=== PATIENT | male | born 1975 | race Caucasian/White ===

== ENCOUNTER 2017-08-04 03:28 | Emergency (ER) | payer MEDICAID ==
[~2017-08-04] VITALS: Ht 170.2 cm; Wt 86.0 kg
[2017-08-04 03:46] VITALS: Ht 170.2 cm; Wt 86.0 kg
[2017-08-04 06:06] VITALS: BP 118/68
== END 2017-08-04 06:06 | disposition home or self-care (01) ==
LOC: ED 03:28
DX: J45.901 Unspecified asthma with (acute) exacerbation (principal); J06.9 Acute upper respiratory infection, unspecified
CPT/HCPCS: J7512; J7613

== ENCOUNTER 2019-07-27 04:58 | Emergency (ER) | payer SELFPAY ==
[~2019-07-27] VITALS: Ht 162.6 cm; Wt 84.4 kg
[2019-07-27 05:05] VITALS: Ht 162.6 cm; Wt 84.4 kg
[2019-07-27 06:08] VITALS: BP 127/81
== END 2019-07-27 06:08 | disposition home or self-care (01) ==
LOC: ED 04:58
DX: K52.9 Noninfective gastroenteritis and colitis, unspecified (principal)
CPT/HCPCS: J1885; Q0162